=== PATIENT | female | born 1960 | race African-American/Black ===

== ENCOUNTER 2023-08-26 22:26 | Emergency (ER) | payer OTHER ==
[~2023-08-26] VITALS: Ht 175.3 cm; Wt 78.0 kg
[2023-08-26 22:35] VITALS: TEMP 98.3
[2023-08-27] MEDS: IBUPROFEN 600 MG TABLET PO ONE (01:01)
[2023-08-27 01:02] VITALS: BP 116/62; PULSE 74; RESP 18
== END 2023-08-27 01:07 | disposition home or self-care (01) ==
LOC: EMS 22:26
DX: S63.501A Unspecified sprain of right wrist, initial encounter (principal); Z88.5 Allergy status to narcotic agent; W10.1XXA Fall (on)(from) sidewalk curb, initial encounter; Y93.89 Activity, other specified; Y92.89 Other specified places as the place of occurrence of the external cause; Y99.8 Other external cause status
CPT/HCPCS: 99284; 73110-TC; 73130-TC; Z7502; Z7610